=== PATIENT | male | born 1975 | race Caucasian/White ===

== ENCOUNTER → 2020-10-08 09:29 | Outpatient (CLI) | payer OTHER, SELFPAY ==
--- NOTE | 2020-10-08 09:38 | DI.RAD.S_ITS ---
PROCEDURE: XR WRIST LT 2V INDICATIONS: LT WRIST/HAND PAIN TECHNIQUE: 2 left hand plain films same day reviewed. views of the wrist were acquired. COMPARISON: Left hand plain films same day reviewed.. FINDINGS: Bones: No fractures or dislocations. No suspicious bony lesions. Scaphoid view: Not obtained but the scaphoid visualized appears normal. Soft tissues: No suspicious soft tissue calcifications. IMPRESSION: No trauma found. Source of pain is not seen. Dictated by: Cecilio Bangura M.D. on 10/08/2020 at 10:50 Approved by: Cecilio Bangura M.D. on 10/08/2020 at 10:51
--- NOTE | 2020-10-08 09:38 | DI.RAD.S_ITS ---
PROCEDURE: XR HAND LT MIN 3V INDICATIONS: LT WRIST/HAND PAIN TECHNIQUE: 3 views of the hand(s) acquired. COMPARISON: [facility], CR, XR WRIST LT 2V, 10/08/2020, 9:37. FINDINGS: Bones: No fractures or dislocations. Carpal bones are normally aligned. No suspicious bony lesions. Soft tissues: No suspicious soft tissue calcifications. IMPRESSION: No trauma found. Dictated by: Cecilio Bangura M.D. on 10/08/2020 at 10:49 Approved by: Cecilio Bangura M.D. on 10/08/2020 at 10:50
== END ==
PROVIDERS: PCP Nurse Practitioner; Referring Provider Nurse Practitioner; Visit Provider Nurse Practitioner
DX: M25.532 Pain in left wrist (principal); M67.442 Ganglion, left hand
CPT/HCPCS: 73100; 73130

== ENCOUNTER → 2023-04-05 16:45 | Outpatient (CLI) | payer OTHER, MEDICAID, SELFPAY ==
--- NOTE | 2023-04-05 | DI.US.S_ITS ---
PROCEDURE: US SCROTUM INDICATIONS: mass of left testicle TECHNIQUE: Real-time scanning was performed of the scrotum and testicles, with image documentation. Color and pulse Doppler interrogation was performed of both testicles. COMPARISON: None. FINDINGS: Right: Testicle is normal in size at 4.8 x 2.7 x 3.6 cm, and homogenous in echotexture. Epididymis is normal in overall size and morphology. No hydrocele or varicoceles. Overlying scrotal skin is normal in thickness. Left: Testicle is normal in size at 4.9 x 2.4 by 4.0 cm, and homogeneous in echotexture. Prominent cystic transformation of the left epididymis. A dominant simple cyst measures 2.3 x 1.5 x 2.3 cm. No internal debris or septations. No evidence of inguinal hernia. No hydrocele or varicoceles. Overlying scrotal skin is normal in thickness. Doppler: Color and pulse Doppler demonstrate normal and symmetric arterial flow in both testicles. IMPRESSION: 1. 2.3 cm left epididymal cyst likely accounts for left scrotal mass. 2. Normal testicular morphology. Dictated by: Sunita Royal M.D. on 04/06/2023 at 9:08 Approved by: Sunita Royal M.D. on 04/06/2023 at 9:11
== END ==
PROVIDERS: PCP Family Medicine; Referring Provider Physician Assistant; Visit Provider Physician Assistant
DX: N50.89 Other specified disorders of the male genital organs (principal); N50.3 Cyst of epididymis
CPT/HCPCS: 76870

== ENCOUNTER → 2023-04-26 15:06 | Outpatient (CLI) | payer OTHER, MEDICAID, SELFPAY ==
--- NOTE | 2023-04-26 15:08 | DI.RAD.S_ITS ---
PROCEDURE: XR SHOULDER LT MIN 2V INDICATIONS: injury in wrestling, extension TECHNIQUE: Three views of the shoulder were acquired. COMPARISON: None. FINDINGS: Bones: No acute fractures or dislocations. No suspicious bony lesions. Visualized ribs appear intact. Mild degenerative changes at the acromioclavicular joint. Soft tissues: No suspicious soft tissue calcifications. IMPRESSION: No acute osseous abnormality. If the symptoms persist, consider cross sectional imaging such as MRI or CT for further assessment. Approved by: Honorio Trujillo M.D. on 04/26/2023 at 20:35
== END ==
PROVIDERS: PCP Family Medicine; Referring Provider Physician Assistant; Visit Provider Physician Assistant
DX: S49.92XA Unspecified injury of left shoulder and upper arm, initial encounter (principal); X58.XXXA Exposure to other specified factors, initial encounter
CPT/HCPCS: 73030

== ENCOUNTER → 2023-05-08 10:26 | Outpatient (CLI) | payer OTHER, MEDICAID, SELFPAY ==
--- NOTE | 2023-05-08 10:28 | DI.MRI.S_ITS ---
PROCEDURE: MR SHOULDER LT WO CON INDICATIONS: wrestling injury in extension TECHNIQUE: Noncontrast oblique coronal T2 fast spin echo with fat saturation, oblique sagittal T1 spin echo and T2 fast spin echo with fat saturation, axial T1 spin echo and T2 fast spin echo with fat saturation through the shoulder. COMPARISON: None. FINDINGS: Image quality: Excellent. Rotator cuff: Low-grade articular and bursal surface partial thickness tear involving distal supraspinatus at its insertion on the humeral head is seen extending to musculotendinous junction. Distal infraspinatus and subscapularis tendinosis is noted. No full-thickness rotator cuff tendon rupture. Sagittal images demonstrate no significant rotator cuff muscle atrophy. Bones and bursae: No bone marrow contusions or fractures. Mild acromioclavicular joint osteoarthritic changes are seen with joint space narrowing, subchondral sclerosis and small downward osteophyte formation depressing on musculotendinous junction of supraspinatus. The acromion demonstrates conventional anatomy, without an os acromiale. No pathologic subacromial-subdeltoid or subcoracoid bursal fluid is present. Capsule and soft tissues: Subtle fraying of posterior superior labrum with T2 hyperintense signal is seen at 11 to 12 o'clock position. The long head of the biceps tendon demonstrates normal location and morphology. The rotator interval appears normal, without fibrosis. The coracohumeral ligament is normal in thickness. IMPRESSION: 1. Low-grade articular and bursal surface partial thickness tear involving distal supraspinatus at its insertion on the humeral head extending to musculotendinous junction. Distal infraspinatus and subscapularis tendinosis. No full-thickness rotator cuff tendon rupture. 2. Very mild acromioclavicular joint osteoarthritis. No marrow edema. No fracture or dislocation. 3. Suggestion of subtle posterior superior labral tear at 11 to 12 o'clock position. Dictated by: Enrique Villalba M.D. on 05/08/2023 at 12:11 Approved by: Enrique Villalba M.D. on 05/08/2023 at 12:18
== END ==
LOC: MRI 10:26
PROVIDERS: PCP Family Medicine; Referring Provider Physician Assistant; Visit Provider Physician Assistant
DX: S46.012A Strain of muscle(s) and tendon(s) of the rotator cuff of left shoulder, initial encounter (principal); X58.XXXA Exposure to other specified factors, initial encounter; Y93.72 Activity, wrestling
CPT/HCPCS: 73221

== ENCOUNTER → 2023-06-07 10:01 | Outpatient (CLI) | payer OTHER, MEDICAID, SELFPAY | LOC: PHYS 10:02 | PROVIDERS: Family Provider Family Medicine; PCP Family Medicine; Referring Provider Physician Assistant; Visit Provider Physician Assistant | DX: M75.100 Unspecified rotator cuff tear or rupture of unspecified shoulder, not specified as traumatic (principal); S43.439A Superior glenoid labrum lesion of unspecified shoulder, initial encounter | CPT/HCPCS: 95886; 95910 ==

== ENCOUNTER 2023-06-11 09:00 | Outpatient (RCR) | payer OTHER, MEDICAID, SELFPAY ==
--- NOTE | 2023-05-10 16:00 | PT.OPPOC ---
Physical, Occupational & Speech Therapy At [facility] Current Diagnoses Unspecified injury of left shoulder and upper arm, initial encounter (05/10/23) Visit Care Team Role Provider Type Gerald Hahn DO Family Provider Physician Primary Care Provider Specialty: Family Practice Address: [address] [place] [address], [address], [address] Email: [email or web address] [email or web address]-C Attending Provider Advanced Tie Hacker Referring Provider Specialty: Medical Wound Care Address: [address] [place] [address], [id number] Email: [email or web address] Plan Of Care PT-OP-T Assessment and Plan Start: 05/10/23 08:25 Freq: Status: Active Protocol: Document 05/10/23 09:46 DANITA (Rec: 05/10/23 10:36 [facility] [id number]) Physical Therapy Assessment Rehab Potential Rehabilitation Potential Good Evaluation Complexity Number of Personal Factors/Comorbidities 1-2 Number of Body Systems Impaired 3 Clinical Presentation at Evaluation Evolving Impairments Impairments Pain,Posture,Soft Tissue Mobility,Strength Goals Four Impairment numbness and tingling into left UE Snf Goal (LTG) Eliminate neurological symptoms into left UE LTG Duration 07/09/23 Three Impairment scapular weakness Impairment poor stability left scapula Short Term Goal (STG) Patient to be instructed in HEP for purposes of scapular stabilization and strengthening STG Duration 06/10/23 Visual Merchandising Director Goal (LTG) Patient to be independent and compliant with HEP and demonstrate 5/5 muscle strength all scapular muscles for improved shoulder function LTG Duration 07/09/23 Two Impairment activity tolerance Impairment Quickdash UE disability index score 34% Short Term Goal (STG) Improve Quickdash score to no greater than 24% as measure of improved activity tolerance and shoulder function STG Duration 06/10/23 LTG Duration 07/09/23 One Impairment pain left shoulder as high as 7/10, interferes with sleep Short Term Goal (STG) Decrease pain by at least 50% with all usual activities including sleep STG Duration 06/10/23 Visual Merchandising Director Goal (LTG) Decrease pain by at least 75% with all usual activities and patient will be able to sleep through the night without waking due to shoulder pain LTG Duration 07/09/23 Assessment Summary Assessment Patient presents to PT with function-limiting pain in his left shoulder following injury sustained while wrestling with his son in which his arm was pulled up and behind him. Pain got progressively worse to the point that he sought medical attention. Now taking pain medication and muscle relaxant. Patient reports can 't get comfortable to sleep at night and arm feels heavy. Also having neurological symptoms of numbness into his left hand and nerve-type pain in his left forearm. Increased pain when rotates head left, dec when rotates to right. Increased pain when tries to sit or stand with good posture, dec when slumping. Not taking Gabapentin as was recommended. MRI 05/08/23 showed: 1. Low- grade articular and bursal surface partial thickness tear involving distal supraspinatus at its insertion on the humeral head extending to musculotendinous junction. Distal infraspinatus and subscapularis tendinosis. No full-thickness rotator cuff tendon rupture. 2. Very mild acromioclavicular joint osteoarthritis. No marrow edema. No fracture or dislocation. 3. Suggestion of subtle posterior superior labral tear at 11 to 12 o'clock position. Feel he will benefit from PT to decrease his pain and promote healing, improve left shoulder ROM, strength, sleep, and functional use. POC was discussed and he was in agreement. Physical Therapy Plan Frequency and Duration Frequency of Treatment 2x/Week Duration of treatment (weeks) 8 Plan of Care Start Date 05/10/23 Plan of Care End Date 07/09/23 Therapeutic Interventions Therapeutic Interventions Home Exercise Program,Manual Therapy Next Visit Focus/Plan Next Note Type Treatment Note Next Visit Plan Assess response to kinesiotape , deep tissue mobilization. Initiate ther ex for ROM, strengthening, postural correction. Plan of Care Dates Plan of Care Start Date 05/10/23 Plan of Care End Date 07/09/23 Electronically Signed by: Mariaa Sun, PT 05/14/23 0829 If you are in agreement with this Plan of Care, please return a signed and dated copy. I have reviewed this Plan of Care and certify that the skilled therapy services above are required to meet the patient?s needs. Physician Signature Date Printed Name and Credentials Clinical Instructor Signature Printed Name and Credentials
--- NOTE | 2023-05-10 16:00 | PT.OIE ---
Current Diagnoses Unspecified injury of left shoulder and upper arm, initial encounter (05/10/23) Past Medical History (Last Updated 05/05/22 @ 13:21 by Gerald Hahn DO) Basal cell carcinoma Visit Care Team Role Provider Type Gerald Hahn DO Family Provider Physician Primary Care Provider Specialty: Family Practice Address: [address] [place] [address], [address], [place], [address] Email: [email or web address] [email or web address] Attending Provider Advanced Nurse Discharge Planner Referring Provider Specialty: Medical Wound Care Address: [address] [place] [address], [address] Email: [email or web address] Physical Therapy Initial Evaluation PT-OP-A Visit Information Start: 05/10/23 08:25 Freq: Status: Active Protocol: Document 05/10/23 09:46 SAK (Rec: 05/10/23 10:36 [facility] [id number]) Out-Patient Physical Therapy Visit Information Visit Information Visit Type Initial Evaluation Visit Start Time 09:46 Visit Stop Time 10:35 Total Visit Minutes 49 Visit Number 1 Evaluation Information Evaluation Date 05/10/23 PT-OP-B Current Condition Start: 05/10/23 08:25 Freq: Status: Active Protocol: Document 05/10/23 09:46 SAK (Rec: 05/10/23 10:36 SAK [id number]) Current Condition History of Current Condition Onset Date 1 month Current Complaints left shoulder pain History of Current Condition Thinks injured his shoulder while wrestling with his son; arm pulled back behind head with elbow bent, shoulder toward ear. Woke up next day feeling sore, has progressively gotten worse. Now having nerve pain forearm and having numbness left UE. Has rub knots in his shoulder. Worst pain is when lays down at night. Painful reaching overhead and out to side. 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, [place] Current Functional Impairments (Reported) Functional Limitations- ADL's painful Functional Limitations- Recreation/ unable Hobbies PT-OP-K Range of Motion Start: 05/10/23 08:25 Freq: Status: Active Protocol: Document 05/10/23 09:46 [facility] (Rec: 05/10/23 10:36 [facility] [id number]) Cervical Spine Range of Motion Cervical Spine Active Testing Position Sitting Flexion 45 Extension 15 Rotation Left 50 Rotation Right 65 Lateral Flexion Left 30 Lateral Flexion Right 30 ROM Limitations Pain Comments rotation left inc pain, rotation right dec pain Shoulder Goniometric Range of Motion Shoulder Left Active Shoulder ROM WFL No Flexion 165 Extension 25 Abduction 160 Horizontal Abduction 90 Horizontal Adduction 20 External Rotation at 45 degrees 65 Abduction Internal Rotation Behind Back (text) T12 right Shoulder ROM WFL Yes Elbow/Forearm Range of Motion Elbow/Forearm marie Elbow/Forearm ROM WFL Yes PT-OP-L Special Tests Start: 05/10/23 08:25 Freq: Status: Active Protocol: Document 05/10/23 09:46 [facility] (Rec: 05/10/23 10:36 [facility] [id number]) Special Tests Cervical Spine Special Tests compression Test Results sl dec pain Traction Test Results inc pain Shoulder Special Tests Empty Can Test Results neg Belly Press Test Results neg Drop Arm Rotator Cuff Test Results neg PT-OP-M Strength Start: 05/10/23 08:25 Freq: Status: Active Protocol: Document 05/10/23 09:46 [facility] (Rec: 05/10/23 10:36 [facility] [id number]) Cervical Spine Strength Cervical Spine Manual Muscle Testing Testing Position Sitting Flexion (C1-2) 4 Good Extension 4 Good Rotation Left 4- Good- Rotation Right 4- Good- Lateral Flexion Left (C3) 4- Good- Lateral Flexion Right (C3) 4 Good Scapula Strength Scapula Manual Muscle Testing Left Elevation (C4) 4- Good- Adduction 4- Good- Abduction 4- Good- Depression 4- Good- Right Elevation (C4) 5 Normal Adduction 5 Normal Abduction 5 Normal Depression 5 Normal Shoulder Strength Shoulder Manual Muscle Testing Left Flexion 4- Good- Extension 4- Good- Abduction (C5) 4- Good- Adduction 4 Good External Rotation 4- Good- Internal Rotation 4 Good Horizontal Abduction 4- Good- Horizontal Adduction 4- Good- Right Flexion 5 Normal Extension 5 Normal Abduction (C5) 5 Normal Adduction 5 Normal External Rotation 5 Normal Internal Rotation 5 Normal Horizontal Abduction 5 Normal Horizontal Adduction 5 Normal PT-OP-Q Treatments Start: 05/10/23 08:25 Freq: Status: Active Protocol: Document 05/10/23 09:46 [facility] (Rec: 05/10/23 10:36 [facility] [id number]) Manual Therapy Treatment Taping left shoulder, UT Treatment Focus inhibit UT, support RC Type of Tape Kinesio Tape Comments I strip UT: AC to base skull with paper off tension, UT on stretch 2 Y strips RC: left arm supported on bolster, 1 I strip deltoid insertion with 1 tail ant border deltoid and 1 tail post border deltoid 50- 70% tension 1 I strip RC insertion with 1 tail sup to scapular spine and 1 tail inf to scapular spine 50-75% tension Self-Care/Home Management Treatment Education Patient Education Pain Management,Posture Other Education instructed use theracane PT-OP-R Modalities Start: 05/10/23 08:25 Freq: Status: Active Protocol: Document 05/10/23 09:46 [facility] (Rec: 05/10/23 10:36 [facility] [id number]) Hot Pack/Cold Pack Treatment cold Location L shld, scap Patient Position Sitting PT-OP-T Assessment and Plan Start: 05/10/23 08:25 Freq: Status: Active Protocol: Document 05/10/23 09:46 [facility] (Rec: 05/10/23 10:36 [facility] [id number]) Physical Therapy Assessment Rehab Potential Rehabilitation Potential Good Evaluation Complexity Number of Personal Factors/Comorbidities 1-2 Number of Body Systems Impaired 3 Clinical Presentation at Evaluation Evolving Impairments Impairments Pain,Posture,Soft Tissue Mobility,Strength Goals Four Impairment numbness and tingling into left UE Alf Goal (LTG) Eliminate neurological symptoms into left UE LTG Duration 07/09/23 Three Impairment scapular weakness Impairment poor stability left scapula Short Term Goal (STG) Patient to be instructed in HEP for purposes of scapular stabilization and strengthening STG Duration 06/10/23 Sewer Digger Goal (LTG) Patient to be independent and compliant with HEP and demonstrate 5/5 muscle strength all scapular muscles for improved shoulder function LTG Duration 07/09/23 Two Impairment activity tolerance Impairment Quickdash UE disability index score 34% Short Term Goal (STG) Improve Quickdash score to no greater than 24% as measure of improved activity tolerance and shoulder function STG Duration 06/10/23 LTG Duration 07/09/23 One Impairment pain left shoulder as high as 7/10, interferes with sleep Short Term Goal (STG) Decrease pain by at least 50% with all usual activities including sleep STG Duration 06/10/23 Sewer Digger Goal (LTG) Decrease pain by at least 75% with all usual activities and patient will be able to sleep through the night without waking due to shoulder pain LTG Duration 07/09/23 Assessment Summary Assessment Patient presents to PT with function-limiting pain in his left shoulder following injury sustained while wrestling with his son in which his arm was pulled up and behind him. Pain got progressively worse to the point that he sought medical attention. Now taking pain medication and muscle relaxant. Patient reports can 't get comfortable to sleep at night and arm feels heavy. Also having neurological symptoms of numbness into his left hand and nerve-type pain in his left forearm. Increased pain when rotates head left, dec when rotates to right. Increased pain when tries to sit or stand with good posture, dec when slumping. Not taking Gabapentin as was recommended. MRI 05/08/23 showed: 1. Low- grade articular and bursal surface partial thickness tear involving distal supraspinatus at its insertion on the humeral head extending to musculotendinous junction. Distal infraspinatus and subscapularis tendinosis. No full-thickness rotator cuff tendon rupture. 2. Very mild acromioclavicular joint osteoarthritis. No marrow edema. No fracture or dislocation. 3. Suggestion of subtle posterior superior labral tear at 11 to 12 o'clock position. Feel he will benefit from PT to decrease his pain and promote healing, improve left shoulder ROM, strength, sleep, and functional use. POC was discussed and he was in agreement. Physical Therapy Plan Frequency and Duration Frequency of Treatment 2x/Week Duration of treatment (weeks) 8 Plan of Care Start Date 05/10/23 Plan of Care End Date 07/09/23 Therapeutic Interventions Therapeutic Interventions Home Exercise Program,Manual Therapy Next Visit Focus/Plan Next Note Type Treatment Note Next Visit Plan Assess response to kinesiotape , deep tissue mobilization. Initiate ther ex for ROM, strengthening, postural correction.
--- NOTE | 2023-05-15 08:42 | PT.OTN ---
Current Diagnoses Unspecified injury of left shoulder and upper arm, initial encounter (05/15/23) Physical Therapy Treatment Note PT-OP-A Visit Information Start: 05/10/23 08:25 Freq: Status: Active Protocol: Document 05/15/23 09:45 SAK (Rec: 05/15/23 10:31 [facility] [id number]) Out-Patient Physical Therapy Visit Information Visit Information Visit Type Treatment Note Visit Note Thinks the numbness came when he fell and caught himself forward on outstretched arms. That reinjured arm and caused numbness. AFter PT pain a little better. Has started doing bandwork again but with increase soreness, but now less knots. Liked kinesiotape Visit Start Time 09:45 Visit Stop Time 10:40 Total Visit Minutes 55 Visit Number 2 Evaluation Information Evaluation Date 05/10/23 PT-OP-B Current Condition Start: 05/10/23 08:25 Freq: Status: Active Protocol: Document 05/15/23 09:45 SAK (Rec: 05/15/23 10:31 [facility] [id number]) Current Condition History of Current Condition Onset Date 1 month Current Complaints left shoulder pain History of Current Condition Thinks injured his shoulder while wrestling with his son; arm pulled back behind head with elbow bent, shoulder toward ear. Woke up next day feeling sore, has progressively gotten worse. Now having nerve pain forearm and having numbness left UE. Has rub knots in his shoulder. Worst pain is when lays down at night. Painful reaching overhead and out to side. Turning head to right dec pain and numbness, turning head to left inc pain and numbness Prior Treatments and Tests MRI left shoulder: supraspinatus tear PT-OP-C Subjective Start: 05/10/23 08:25 Freq: Status: Active Protocol: Document 05/15/23 09:45 SAK (Rec: 05/16/23 08:41 SAK [id number]) OP-PT Subjective Patient Comments Patient Comments Reports dec in intensity of pain, some improvement in sleep. Feels work on trigger points helpful. PT-OP-K Range of Motion Start: 05/10/23 08:25 Freq: Status: Active Protocol: Document 05/10/23 09:46 SAK (Rec: 05/10/23 10:36 SAK [id number]) Cervical Spine Range of Motion Cervical Spine Active Testing Position Sitting Flexion 45 Extension 15 Rotation Left 50 Rotation Right 65 Lateral Flexion Left 30 Lateral Flexion Right 30 ROM Limitations Pain Comments rotation left inc pain, rotation right dec pain Shoulder Goniometric Range of Motion Shoulder Left Active Shoulder ROM WFL No Flexion 165 Extension 25 Abduction 160 Horizontal Abduction 90 Horizontal Adduction 20 External Rotation at 45 degrees 65 Abduction Internal Rotation Behind Back (text) T12 right Shoulder ROM WFL Yes Elbow/Forearm Range of Motion Elbow/Forearm marie Elbow/Forearm ROM WFL Yes PT-OP-L Special Tests Start: 05/10/23 08:25 Freq: Status: Active Protocol: Document 05/10/23 09:46 [facility] (Rec: 05/10/23 10:36 [facility] [id number]) Special Tests Cervical Spine Special Tests compression Test Results sl dec pain Traction Test Results inc pain Shoulder Special Tests Empty Can Test Results neg Belly Press Test Results neg Drop Arm Rotator Cuff Test Results neg PT-OP-M Strength Start: 05/10/23 08:25 Freq: Status: Active Protocol: Document 05/10/23 09:46 [facility] (Rec: 05/10/23 10:36 [facility] [id number]) Cervical Spine Strength Cervical Spine Manual Muscle Testing Testing Position Sitting Flexion (C1-2) 4 Good Extension 4 Good Rotation Left 4- Good- Rotation Right 4- Good- Lateral Flexion Left (C3) 4- Good- Lateral Flexion Right (C3) 4 Good Scapula Strength Scapula Manual Muscle Testing Left Elevation (C4) 4- Good- Adduction 4- Good- Abduction 4- Good- Depression 4- Good- Right Elevation (C4) 5 Normal Adduction 5 Normal Abduction 5 Normal Depression 5 Normal Shoulder Strength Shoulder Manual Muscle Testing Left Flexion 4- Good- Extension 4- Good- Abduction (C5) 4- Good- Adduction 4 Good External Rotation 4- Good- Internal Rotation 4 Good Horizontal Abduction 4- Good- Horizontal Adduction 4- Good- Right Flexion 5 Normal Extension 5 Normal Abduction (C5) 5 Normal Adduction 5 Normal External Rotation 5 Normal Internal Rotation 5 Normal Horizontal Abduction 5 Normal Horizontal Adduction 5 Normal PT-OP-Q Treatments Start: 05/10/23 08:25 Freq: Status: Active Protocol: Document 05/15/23 09:45 SAK (Rec: 05/15/23 10:31 [facility] [id number]) Cardio Equipment Upper Body Ergometer (UBE) Duration (Minutes) 6 RPM 60 Seat Position 11 Height 2.5 Other fwd/bck Gym Equipment Cable Column (Body Solid) lat pull Resistance 40 Reps/Time 10x scap shrug Details lat machine Resistance 40 Reps/Time 10x Therapeutic Exercises Sidelying Exercises open book Reps/Minutes 5x Sitting Exercises trunk rotation Reps/Minutes 2x Comments cues for deep breath serratus pinch Sitting Exercise Name UE's 90 degrees Reps/Minutes 5x shoulder shrugs Reps/Minutes 5x cat/cow Reps/Minutes 5x Standing Exercises scaption Equipment Used L1 TB Reps/Minutes 10x5 Comments cues for palm forward, pain- free ROM shoulder ER Equipment Used L1 TB Reps/Minutes 10x5 Comments cues for elbows at side post capsule stretch Reps/Minutes 2x angels Equipment Used wall Reps/Minutes 5x wall Standing Exercise Name 90/90 shld ER Reps/Minutes 5x Comments back to wall Manual Therapy Treatment Soft Tissue Mobilization periscap Mobilization Type Myofascial Release,Sustained Pressure Intensity/Depth Deep Body Position Sidelying Taping left shoulder, UT Treatment Focus inhibit UT, support RC Type of Tape Kinesio Tape Comments I strip UT: AC to base skull with paper off tension, UT on stretch 2 Y strips RC: left arm supported on bolster, 1 I strip deltoid insertion with 1 tail ant border deltoid and 1 tail post border deltoid 50- 70% tension 1 I strip RC insertion with 1 tail sup to scapular spine and 1 tail inf to scapular spine 50-75% tension Self-Care/Home Management Treatment Education Patient Education Home Exercise Program,Pain Management,Posture PT-OP-R Modalities Start: 05/10/23 08:25 Freq: Status: Active Protocol: Document 05/15/23 09:45 [facility] (Rec: 05/16/23 08:41 [facility] [id number]) Hot Pack/Cold Pack Treatment Hot Pack Location left should, scap (small), left lat thorax (large Patient Position Sitting PT-OP-T Assessment and Plan Start: 05/10/23 08:25 Freq: Status: Active Protocol: Document 05/15/23 09:45 [facility] (Rec: 05/15/23 10:31 [facility] [id number]) Physical Therapy Assessment Impairments Impairments Pain,Posture,Soft Tissue Mobility,Strength Goals Four Impairment numbness and tingling into left UE Truck Trailer Final Inspector Goal (LTG) Eliminate neurological symptoms into left UE LTG Duration 07/09/23 Three Impairment scapular weakness Impairment poor stability left scapula Short Term Goal (STG) Patient to be instructed in HEP for purposes of scapular stabilization and strengthening STG Duration 06/10/23 Truck Trailer Final Inspector Goal (LTG) Patient to be independent and compliant with HEP and demonstrate 5/5 muscle strength all scapular muscles for improved shoulder function LTG Duration 07/09/23 Two Impairment activity tolerance Impairment Quickdash UE disability index score 34% Short Term Goal (STG) Improve Quickdash score to no greater than 24% as measure of improved activity tolerance and shoulder function STG Duration 06/10/23 LTG Duration 07/09/23 One Impairment pain left shoulder as high as 7/10, interferes with sleep Short Term Goal (STG) Decrease pain by at least 50% with all usual activities including sleep STG Duration 06/10/23 Truck Trailer Final Inspector Goal (LTG) Decrease pain by at least 75% with all usual activities and patient will be able to sleep through the night without waking due to shoulder pain LTG Duration 07/09/23 Progress Towards Goals Progress Towards Goals Progressing Toward Goals Assessment Summary Assessment Good progress with dec pain and improved activity tolerance. Still numbness in hand. Benefits from kinesiotape. Diminished trigger points periscapular but still present Physical Therapy Plan Frequency and Duration Frequency of Treatment 2x/Week Duration of treatment (weeks) 8 Plan of Care Start Date 05/10/23 Plan of Care End Date 07/09/23 Therapeutic Interventions Therapeutic Interventions Home Exercise Program,Manual Therapy
--- NOTE | 2023-05-22 12:13 | PT.OTN ---
Current Diagnoses Unspecified injury of left shoulder and upper arm, initial encounter (05/22/23) Physical Therapy Treatment Note PT-OP-A Visit Information Start: 05/10/23 08:25 Freq: Status: Active Protocol: Document 05/22/23 11:23 AB (Rec: 05/22/23 12:10 AB [id number]) Out-Patient Physical Therapy Visit Information Visit Information Visit Type Treatment Note Visit Start Time 10:29 Visit Stop Time 11:14 Total Visit Minutes 45 Visit Number 3 Number of [employer] Visits 1 PT-OP-B Current Condition Start: 05/10/23 08:25 Freq: Status: Active Protocol: Document 05/15/23 09:45 SAK (Rec: 05/15/23 10:31 SAK [id number]) Current Condition History of Current Condition Onset Date 1 month Current Complaints left shoulder pain History of Current Condition Thinks injured his shoulder while wrestling with his son; arm pulled back behind head with elbow bent, shoulder toward ear. Woke up next day feeling sore, has progressively gotten worse. Now having nerve pain forearm and having numbness left UE. Has rub knots in his shoulder. Worst pain is when lays down at night. Painful reaching overhead and out to side. Turning head to right dec pain and numbness, turning head to left inc pain and numbness Prior Treatments and Tests MRI left shoulder: supraspinatus tear PT-OP-C Subjective Start: 05/10/23 08:25 Freq: Status: Active Protocol: Document 05/22/23 11:23 AB (Rec: 05/22/23 12:10 AB [id number]) OP-PT Subjective Patient Comments Patient Comments Patient reports numbness left index finger persists, only at tip most of the time, but further down the finger post exercise. Patient reports he had a hard work out shoveling and working to clear a downspout at his home yesterday, and woke up today with no shoulder pain. Patient comments he did not take his pain meds today as he wanted to see how he felt in therapy without having taken pain medication. Patient declined taping this session, commenting skin was raw when he took off the tape, and comments his skin needs a break. PT-OP-K Range of Motion Start: 05/10/23 08:25 Freq: Status: Active Protocol: Document 05/10/23 09:46 SAK (Rec: 05/10/23 10:36 [facility] [id number]) Cervical Spine Range of Motion Cervical Spine Active Testing Position Sitting Flexion 45 Extension 15 Rotation Left 50 Rotation Right 65 Lateral Flexion Left 30 Lateral Flexion Right 30 ROM Limitations Pain Comments rotation left inc pain, rotation right dec pain Shoulder Goniometric Range of Motion Shoulder Left Active Shoulder ROM WFL No Flexion 165 Extension 25 Abduction 160 Horizontal Abduction 90 Horizontal Adduction 20 External Rotation at 45 degrees 65 Abduction Internal Rotation Behind Back (text) T12 right Shoulder ROM WFL Yes Elbow/Forearm Range of Motion Elbow/Forearm marie Elbow/Forearm ROM WFL Yes PT-OP-L Special Tests Start: 05/10/23 08:25 Freq: Status: Active Protocol: Document 05/10/23 09:46 [facility] (Rec: 05/10/23 10:36 [facility] [id number]) Special Tests Cervical Spine Special Tests compression Test Results sl dec pain Traction Test Results inc pain Shoulder Special Tests Empty Can Test Results neg Belly Press Test Results neg Drop Arm Rotator Cuff Test Results neg PT-OP-M Strength Start: 05/10/23 08:25 Freq: Status: Active Protocol: Document 05/10/23 09:46 [facility] (Rec: 05/10/23 10:36 [facility] [id number]) Cervical Spine Strength Cervical Spine Manual Muscle Testing Testing Position Sitting Flexion (C1-2) 4 Good Extension 4 Good Rotation Left 4- Good- Rotation Right 4- Good- Lateral Flexion Left (C3) 4- Good- Lateral Flexion Right (C3) 4 Good Scapula Strength Scapula Manual Muscle Testing Left Elevation (C4) 4- Good- Adduction 4- Good- Abduction 4- Good- Depression 4- Good- Right Elevation (C4) 5 Normal Adduction 5 Normal Abduction 5 Normal Depression 5 Normal Shoulder Strength Shoulder Manual Muscle Testing Left Flexion 4- Good- Extension 4- Good- Abduction (C5) 4- Good- Adduction 4 Good External Rotation 4- Good- Internal Rotation 4 Good Horizontal Abduction 4- Good- Horizontal Adduction 4- Good- Right Flexion 5 Normal Extension 5 Normal Abduction (C5) 5 Normal Adduction 5 Normal External Rotation 5 Normal Internal Rotation 5 Normal Horizontal Abduction 5 Normal Horizontal Adduction 5 Normal PT-OP-Q Treatments Start: 05/10/23 08:25 Freq: Status: Active Protocol: Document 05/22/23 11:23 AB (Rec: 05/22/23 12:10 AB [id number]) Therapeutic Exercises Supine Exercises chest radio operator ground on foam roller Side bilateral Reps/Minutes 3 minutes Comments Verbal cues for UE positioning and for breathing from diaphragm Sidelying Exercises open book Side bilateral Reps/Minutes 5x Comments Verbal cues for breathing Sitting Exercises serratus pinch Side bilateral Comments Verbal cues for avoiding UT activation left Standing Exercises high row Standing Exercise Name high row Side bilateral Resistance blue band Reps/Minutes 2X10 Comments Verbal and tactile cues for avoiding UT activation and extending elbows scaption Equipment Used L1 TB Reps/Minutes X10 Comments verbal cues for thumb up and to lower slowly shoulder ER Side bilateral Equipment Used L1 TB Reps/Minutes 2X10 Comments cues for elbows at side post capsule stretch Reps/Minutes 2x wall Standing Exercise Name 90/90 shld ER Reps/Minutes 2X10 Comments back to wall left side, repeated verbal cues to perform in pain free range Manual Therapy Treatment Soft Tissue Mobilization Cervical spine Body Location left UT, levator scap, scalene laterally at clavicle Mobilization Type Rolling Intensity/Depth S to M Body Position Sitting Comments Seated with pillows under UE's pec Body Location left pec Mobilization Type Rolling,Other Intensity/Depth Deep Body Position Hooklying periscap Body Location posterior cuff, terres major/ minor, Mobilization Type Rolling,Sustained Pressure Intensity/Depth Moderate Body Position Sidelying Comments Monitored for pain Joint Mobilizations scapular mobilization Joint left scapula Grade III Body Position Sidelying Comments into depression and adduction monitored for pain PT-OP-R Modalities Start: 05/10/23 08:25 Freq: Status: Active Protocol: Document 05/15/23 09:45 SAK (Rec: 05/16/23 08:41 [facility] [id number]) Hot Pack/Cold Pack Treatment Hot Pack Location left should, scap (small), left lat thorax (large Patient Position Sitting PT-OP-T Assessment and Plan Start: 05/10/23 08:25 Freq: Status: Active Protocol: Document 05/22/23 11:23 AB (Rec: 05/22/23 12:10 AB [id number]) Physical Therapy Assessment Goals Four Impairment numbness and tingling into left UE Primary Care Provider Goal (LTG) Eliminate neurological symptoms into left UE LTG Duration 07/09/23 Three Impairment scapular weakness Impairment poor stability left scapula Short Term Goal (STG) Patient to be instructed in HEP for purposes of scapular stabilization and strengthening STG Duration 06/10/23 [facility] Goal (LTG) Patient to be independent and compliant with HEP and demonstrate 5/5 muscle strength all scapular muscles for improved shoulder function LTG Duration 07/09/23 Two Impairment activity tolerance Impairment Quickdash UE disability index score 34% Short Term Goal (STG) Improve Quickdash score to no greater than 24% as measure of improved activity tolerance and shoulder function STG Duration 06/10/23 LTG Duration 07/09/23 One Impairment pain left shoulder as high as 7/10, interferes with sleep Short Term Goal (STG) Decrease pain by at least 50% with all usual activities including sleep STG Duration 06/10/23 Primary Care Provider Goal (LTG) Decrease pain by at least 75% with all usual activities and patient will be able to sleep through the night without waking due to shoulder pain LTG Duration 07/09/23 Assessment Summary Assessment Patient into session with reports of left shoulder pain when performing increased activites/working in yard. UT activation during exercises in clinic today continued to be a problem. Patient will benefit from progression of stretching and strengthening exercises and manual therapy for return to previous level of function. Medbridge code [id number] Physical Therapy Plan Frequency and Duration Frequency of Treatment 2x/Week Duration of treatment (weeks) 8 Plan of Care Start Date 05/10/23 Plan of Care End Date 07/09/23 Next Visit Focus/Plan Next Note Type Treatment Note Next Visit Plan possibly progress scapular strengthening, add a pec stretch, reassess tolerance to shoulder ER back to wall 90/ 90 position
--- NOTE | 2023-05-24 16:07 | PT.OTN ---
Current Diagnoses Unspecified injury of left shoulder and upper arm, initial encounter (05/24/23) Physical Therapy Treatment Note PT-OP-A Visit Information Start: 05/10/23 08:25 Freq: Status: Active Protocol: Document 05/24/23 10:29 AB (Rec: 05/24/23 12:08 AB [id number]) Out-Patient Physical Therapy Visit Information Visit Information Visit Start Time 10:33 Visit Stop Time 11:16 Visit Number 4 Number of COLLAR RUNNER Visits 2 PT-OP-B Current Condition Start: 05/10/23 08:25 Freq: Status: Active Protocol: Document 05/15/23 09:45 SAK (Rec: 05/15/23 10:31 SAK [id number]) Current Condition History of Current Condition Onset Date 1 month Current Complaints left shoulder pain History of Current Condition Thinks injured his shoulder while wrestling with his son; arm pulled back behind head with elbow bent, shoulder toward ear. Woke up next day feeling sore, has progressively gotten worse. Now having nerve pain forearm and having numbness left UE. Has rub knots in his shoulder. Worst pain is when lays down at night. Painful reaching overhead and out to side. Turning head to right dec pain and numbness, turning head to left inc pain and numbness Prior Treatments and Tests MRI left shoulder: supraspinatus tear PT-OP-C Subjective Start: 05/10/23 08:25 Freq: Status: Active Protocol: Document 05/24/23 10:29 AB (Rec: 05/24/23 12:08 AB [id number]) OP-PT Subjective Patient Comments Patient Comments Patient reports the shoulder is better, comments the more he uses it the less stiff he feels. Patient reports having less pain in the morning. Patient reports the tingling seems less in the thumb, but still persists. Patient also comments the nerve pain is less. PT-OP-K Range of Motion Start: 05/10/23 08:25 Freq: Status: Active Protocol: Document 05/10/23 09:46 SAK (Rec: 05/10/23 10:36 SAK [id number]) Cervical Spine Range of Motion Cervical Spine Active Testing Position Sitting Flexion 45 Extension 15 Rotation Left 50 Rotation Right 65 Lateral Flexion Left 30 Lateral Flexion Right 30 ROM Limitations Pain Comments rotation left inc pain, rotation right dec pain Shoulder Goniometric Range of Motion Shoulder Left Active Shoulder ROM WFL No Flexion 165 Extension 25 Abduction 160 Horizontal Abduction 90 Horizontal Adduction 20 External Rotation at 45 degrees 65 Abduction Internal Rotation Behind Back (text) T12 right Shoulder ROM WFL Yes Elbow/Forearm Range of Motion Elbow/Forearm marie Elbow/Forearm ROM WFL Yes PT-OP-L Special Tests Start: 05/10/23 08:25 Freq: Status: Active Protocol: Document 05/10/23 09:46 SAK (Rec: 05/10/23 10:36 [facility] [id number]) Special Tests Cervical Spine Special Tests compression Test Results sl dec pain Traction Test Results inc pain Shoulder Special Tests Empty Can Test Results neg Belly Press Test Results neg Drop Arm Rotator Cuff Test Results neg PT-OP-M Strength Start: 05/10/23 08:25 Freq: Status: Active Protocol: Document 05/10/23 09:46 [facility] (Rec: 05/10/23 10:36 [facility] [id number]) Cervical Spine Strength Cervical Spine Manual Muscle Testing Testing Position Sitting Flexion (C1-2) 4 Good Extension 4 Good Rotation Left 4- Good- Rotation Right 4- Good- Lateral Flexion Left (C3) 4- Good- Lateral Flexion Right (C3) 4 Good Scapula Strength Scapula Manual Muscle Testing Left Elevation (C4) 4- Good- Adduction 4- Good- Abduction 4- Good- Depression 4- Good- Right Elevation (C4) 5 Normal Adduction 5 Normal Abduction 5 Normal Depression 5 Normal Shoulder Strength Shoulder Manual Muscle Testing Left Flexion 4- Good- Extension 4- Good- Abduction (C5) 4- Good- Adduction 4 Good External Rotation 4- Good- Internal Rotation 4 Good Horizontal Abduction 4- Good- Horizontal Adduction 4- Good- Right Flexion 5 Normal Extension 5 Normal Abduction (C5) 5 Normal Adduction 5 Normal External Rotation 5 Normal Internal Rotation 5 Normal Horizontal Abduction 5 Normal Horizontal Adduction 5 Normal PT-OP-Q Treatments Start: 05/10/23 08:25 Freq: Status: Active Protocol: Document 05/24/23 10:29 AB (Rec: 05/24/23 12:08 AB [id number]) Therapeutic Exercises Prone Exercises prone T over ball Side bilateral Resistance 3 lb each UE Reps/Minutes X10 Comments Verbal and visual cues prone Y over ball Side bilateral Resistance 0 Comments verbal cues repeated Sidelying Exercises open book Side bilateral Reps/Minutes X10 Comments Verbal cues for breathing, and LE position Sitting Exercises serratus pinch Side bilateral Reps/Minutes X10 Comments visual cues Standing Exercises wall push up plus Side bilateral Reps/Minutes 10 Comments Verbal, visual and tactile cues pec stretch on door Standing Exercise Name pec on door single arm Side bilateral Reps/Minutes 3 one minute Comments verbal and visual cues post capsule stretch Reps/Minutes 2x Manual Therapy Treatment Soft Tissue Mobilization Cervical spine Body Location left UT, levator scap, scalene laterally at clavicle Mobilization Type Sustained Pressure Intensity/Depth Deep Body Position Sitting Comments Seated with pillows under UE's pec Body Location left pec Mobilization Type Rolling,Other Intensity/Depth Deep Body Position Hooklying periscap Body Location posterior cuff, terres major/ minor, Mobilization Type Rolling,Sustained Pressure Intensity/Depth Moderate Body Position Sidelying Comments Monitored for pain Joint Mobilizations scapular mobilization Joint left scapula Grade III Body Position Sidelying Comments into depression and adduction monitored for pain Self-Care/Home Management Treatment Education Patient Education Home Exercise Program,Posture Other Education Patient ed rationale of pec stretch and scapular strengthening to improve shoulder alignment and function. PT-OP-R Modalities Start: 05/10/23 08:25 Freq: Status: Active Protocol: Document 05/15/23 09:45 SAK (Rec: 05/16/23 08:41 SAK [id number]) Hot Pack/Cold Pack Treatment Hot Pack Location left should, scap (small), left lat thorax (large Patient Position Sitting PT-OP-T Assessment and Plan Start: 05/10/23 08:25 Freq: Status: Active Protocol: Document 05/24/23 10:29 AB (Rec: 05/24/23 12:08 AB [id number]) Physical Therapy Assessment Goals Four Impairment numbness and tingling into left UE Sponge Clipper Goal (LTG) Eliminate neurological symptoms into left UE LTG Duration 07/09/23 Three Impairment scapular weakness Impairment poor stability left scapula Short Term Goal (STG) progressing STG Duration 06/10/23 Sponge Clipper Goal (LTG) Patient to be independent and compliant with HEP and demonstrate 5/5 muscle strength all scapular muscles for improved shoulder function LTG Duration 07/09/23 Two Impairment activity tolerance Impairment Quickdash UE disability index score 34% Short Term Goal (STG) Improve Quickdash score to no greater than 24% as measure of improved activity tolerance and shoulder function STG Duration 06/10/23 LTG Duration 07/09/23 One Impairment pain left shoulder as high as 7/10, interferes with sleep Short Term Goal (STG) Decrease pain by at least 50% with all usual activities including sleep STG Duration 06/10/23 Mcfp Goal (LTG) Decrease pain by at least 75% with all usual activities and patient will be able to sleep through the night without waking due to shoulder pain LTG Duration 07/09/23 Assessment Summary Assessment Patient demonstrated improved tolerance to AROM ER with back to wall at 90 deg abduction, reported no pinching pain and commented he would like to try this exercise with a water bottle. Radicular symptoms persists, but per patient may be less as he has to think about if he can really feel it . Physical Therapy Plan Frequency and Duration Frequency of Treatment 2x/Week Duration of treatment (weeks) 8 Plan of Care Start Date 05/10/23 Plan of Care End Date 07/09/23 Next Visit Focus/Plan Next Note Type Treatment Note Next Visit Plan Possibly AROM IR with focus on self tactile cues to avoid anterior translation of humeral head, rhythmic oscillation/statue of liberty with yellow therabar as tolerated
--- NOTE | 2023-05-29 09:00 | PT.OTN ---
Current Diagnoses Unspecified injury of left shoulder and upper arm, initial encounter (05/29/23) Physical Therapy Treatment Note PT-OP-A Visit Information Start: 05/10/23 08:25 Freq: Status: Active Protocol: Document 05/29/23 08:07 SAK (Rec: 05/29/23 09:00 [facility] [id number]) Out-Patient Physical Therapy Visit Information Visit Information Visit Type Treatment Note Visit Start Time 08:14 Visit Stop Time 08:58 Visit Number 5 Number of GEEK SQUAD MANAGER Visits 0 PT-OP-B Current Condition Start: 05/10/23 08:25 Freq: Status: Active Protocol: Document 05/29/23 08:07 SAK (Rec: 05/29/23 09:00 SAK [id number]) Current Condition History of Current Condition Onset Date 1 month Current Complaints left shoulder pain History of Current Condition Thinks injured his shoulder while wrestling with his son; arm pulled back behind head with elbow bent, shoulder toward ear. Woke up next day feeling sore, has progressively gotten worse. Now having nerve pain forearm and having numbness left UE. Has rub knots in his shoulder. Worst pain is when lays down at night. Painful reaching overhead and out to side. Turning head to right dec pain and numbness, turning head to left inc pain and numbness Prior Treatments and Tests MRI left shoulder: supraspinatus tear PT-OP-C Subjective Start: 05/10/23 08:25 Freq: Status: Active Protocol: Document 05/29/23 08:07 SAK (Rec: 05/29/23 09:00 SAK [id number]) OP-PT Subjective Patient Comments Patient Comments Reports sore today, hasn't been taking it easy; states muscle sore not painful sore. Already took a walk 1 mile this am. Requests kinesiotape again as skin has recovered. PT-OP-K Range of Motion Start: 05/10/23 08:25 Freq: Status: Active Protocol: Document 05/10/23 09:46 SAK (Rec: 05/10/23 10:36 SAK [id number]) Cervical Spine Range of Motion Cervical Spine Active Testing Position Sitting Flexion 45 Extension 15 Rotation Left 50 Rotation Right 65 Lateral Flexion Left 30 Lateral Flexion Right 30 ROM Limitations Pain Comments rotation left inc pain, rotation right dec pain Shoulder Goniometric Range of Motion Shoulder Left Active Shoulder ROM WFL No Flexion 165 Extension 25 Abduction 160 Horizontal Abduction 90 Horizontal Adduction 20 External Rotation at 45 degrees 65 Abduction Internal Rotation Behind Back (text) T12 right Shoulder ROM WFL Yes Elbow/Forearm Range of Motion Elbow/Forearm marie Elbow/Forearm ROM WFL Yes PT-OP-L Special Tests Start: 05/10/23 08:25 Freq: Status: Active Protocol: Document 05/10/23 09:46 [facility] (Rec: 05/10/23 10:36 [facility] [id number]) Special Tests Cervical Spine Special Tests compression Test Results sl dec pain Traction Test Results inc pain Shoulder Special Tests Empty Can Test Results neg Belly Press Test Results neg Drop Arm Rotator Cuff Test Results neg PT-OP-M Strength Start: 05/10/23 08:25 Freq: Status: Active Protocol: Document 05/10/23 09:46 [facility] (Rec: 05/10/23 10:36 [facility] [id number]) Cervical Spine Strength Cervical Spine Manual Muscle Testing Testing Position Sitting Flexion (C1-2) 4 Good Extension 4 Good Rotation Left 4- Good- Rotation Right 4- Good- Lateral Flexion Left (C3) 4- Good- Lateral Flexion Right (C3) 4 Good Scapula Strength Scapula Manual Muscle Testing Left Elevation (C4) 4- Good- Adduction 4- Good- Abduction 4- Good- Depression 4- Good- Right Elevation (C4) 5 Normal Adduction 5 Normal Abduction 5 Normal Depression 5 Normal Shoulder Strength Shoulder Manual Muscle Testing Left Flexion 4- Good- Extension 4- Good- Abduction (C5) 4- Good- Adduction 4 Good External Rotation 4- Good- Internal Rotation 4 Good Horizontal Abduction 4- Good- Horizontal Adduction 4- Good- Right Flexion 5 Normal Extension 5 Normal Abduction (C5) 5 Normal Adduction 5 Normal External Rotation 5 Normal Internal Rotation 5 Normal Horizontal Abduction 5 Normal Horizontal Adduction 5 Normal PT-OP-Q Treatments Start: 05/10/23 08:25 Freq: Status: Active Protocol: Document 05/29/23 08:07 [facility] (Rec: 05/29/23 09:00 [facility] [id number]) Gym Equipment Cable Column (Body Solid) scap shrug Details lat machine Resistance 40 Reps/Time 10x2 Therapeutic Exercises Supine Exercises serratus punch Resistance 3# weight Reps/Minutes 10x2 X Supine Exercise Name diagonal Resistance L2 TB Reps/Minutes 10x hor ab Resistance L2 TB Reps/Minutes 10x chest mobile home servicer on foam roller Side bilateral Reps/Minutes 3 minutes Comments Verbal cues for UE positioning and for breathing from diaphragm Prone Exercises prone T over ball Side bilateral Resistance 3 lb each UE Reps/Minutes 10x2 Comments Verbal and visual cues prone Y over ball Side bilateral Resistance 3 lb ea Reps/Minutes 10x Comments verbal cues repeated Standing Exercises ER 90/90 Resistance L1 TB pec stretch on door Standing Exercise Name pec on door single arm Side bilateral Reps/Minutes 3 one minute Comments verbal and visual cues wall Standing Exercise Name 90/90 shld ER Reps/Minutes 2X10 Comments back to wall left side, repeated verbal cues to perform in pain free range Manual Therapy Treatment Taping left shoulder, UT Treatment Focus inhibit UT, support RC Type of Tape Kinesio Tape Comments I strip UT: AC to base skull with paper off tension, UT on stretch 2 Y strips RC: left arm supported on bolster, 1 I strip deltoid insertion with 1 tail ant border deltoid and 1 tail post border deltoid 50- 70% tension 1 I strip RC insertion with 1 tail sup to scapular spine and 1 tail inf to scapular spine 50-75% tension PT-OP-R Modalities Start: 05/10/23 08:25 Freq: Status: Active Protocol: Document 05/15/23 09:45 [facility] (Rec: 05/16/23 08:41 [facility] [id number]) Hot Pack/Cold Pack Treatment Hot Pack Location left should, scap (small), left lat thorax (large Patient Position Sitting PT-OP-T Assessment and Plan Start: 05/10/23 08:25 Freq: Status: Active Protocol: Document 05/29/23 08:07 [facility] (Rec: 05/29/23 09:00 [facility] [id number]) Physical Therapy Assessment Goals Four Impairment numbness and tingling into left UE Fdc Goal (LTG) Eliminate neurological symptoms into left UE LTG Duration 07/09/23 Three Impairment scapular weakness Impairment poor stability left scapula Short Term Goal (STG) progressing STG Duration 06/10/23 General Education Instructor Goal (LTG) Patient to be independent and compliant with HEP and demonstrate 5/5 muscle strength all scapular muscles for improved shoulder function LTG Duration 07/09/23 Two Impairment activity tolerance Impairment Quickdash UE disability index score 34% Short Term Goal (STG) Improve Quickdash score to no greater than 24% as measure of improved activity tolerance and shoulder function STG Duration 06/10/23 LTG Duration 07/09/23 One Impairment pain left shoulder as high as 7/10, interferes with sleep Short Term Goal (STG) Decrease pain by at least 50% with all usual activities including sleep STG Duration 06/10/23 Fdc Goal (LTG) Decrease pain by at least 75% with all usual activities and patient will be able to sleep through the night without waking due to shoulder pain LTG Duration 07/09/23 Assessment Summary Assessment Patient cont to report improved function and decreased pain in left shoulder, no pinching impingement pain today. Radicular symptoms less often Physical Therapy Plan Frequency and Duration Frequency of Treatment 2x/Week Duration of treatment (weeks) 8 Plan of Care Start Date 05/10/23 Plan of Care End Date 07/09/23 Next Visit Focus/Plan Next Note Type Treatment Note Next Visit Plan Rhythmic oscillation/statue of liberty ex, continue progression of functional strengthening, cues to prevent compensatory movements.
--- NOTE | 2023-05-31 11:39 | PT.OTN ---
Current Diagnoses Unspecified injury of left shoulder and upper arm, initial encounter (05/31/23) Physical Therapy Treatment Note PT-OP-A Visit Information Start: 05/10/23 08:25 Freq: Status: Active Protocol: Document 05/31/23 08:12 AB (Rec: 05/31/23 11:38 AB [id number]) Out-Patient Physical Therapy Visit Information Visit Information Visit Type Treatment Note Visit Note Access code [id number] Visit Start Time 10:28 Visit Stop Time 11:18 Visit Number 6 Number of CNC MAINTENANCE TECHNICIAN Visits 1 PT-OP-B Current Condition Start: 05/10/23 08:25 Freq: Status: Active Protocol: Document 05/29/23 08:07 SAK (Rec: 05/29/23 09:00 SAK [id number]) Current Condition History of Current Condition Onset Date 1 month Current Complaints left shoulder pain History of Current Condition Thinks injured his shoulder while wrestling with his son; arm pulled back behind head with elbow bent, shoulder toward ear. Woke up next day feeling sore, has progressively gotten worse. Now having nerve pain forearm and having numbness left UE. Has rub knots in his shoulder. Worst pain is when lays down at night. Painful reaching overhead and out to side. Turning head to right dec pain and numbness, turning head to left inc pain and numbness Prior Treatments and Tests MRI left shoulder: supraspinatus tear PT-OP-C Subjective Start: 05/10/23 08:25 Freq: Status: Active Protocol: Document 05/31/23 08:12 AB (Rec: 05/31/23 11:38 AB [id number]) OP-PT Subjective Patient Comments Patient Comments Patient reports he is still having soreness from his previous session, comments it is the good, muscle sore. Patient reports the numbness is the same. PT-OP-K Range of Motion Start: 05/10/23 08:25 Freq: Status: Active Protocol: Document 05/10/23 09:46 SAK (Rec: 05/10/23 10:36 SAK [id number]) Cervical Spine Range of Motion Cervical Spine Active Testing Position Sitting Flexion 45 Extension 15 Rotation Left 50 Rotation Right 65 Lateral Flexion Left 30 Lateral Flexion Right 30 ROM Limitations Pain Comments rotation left inc pain, rotation right dec pain Shoulder Goniometric Range of Motion Shoulder Left Active Shoulder ROM WFL No Flexion 165 Extension 25 Abduction 160 Horizontal Abduction 90 Horizontal Adduction 20 External Rotation at 45 degrees 65 Abduction Internal Rotation Behind Back (text) T12 right Shoulder ROM WFL Yes Elbow/Forearm Range of Motion Elbow/Forearm marie Elbow/Forearm ROM WFL Yes PT-OP-L Special Tests Start: 05/10/23 08:25 Freq: Status: Active Protocol: Document 05/10/23 09:46 [facility] (Rec: 05/10/23 10:36 [facility] [id number]) Special Tests Cervical Spine Special Tests compression Test Results sl dec pain Traction Test Results inc pain Shoulder Special Tests Empty Can Test Results neg Belly Press Test Results neg Drop Arm Rotator Cuff Test Results neg PT-OP-M Strength Start: 05/10/23 08:25 Freq: Status: Active Protocol: Document 05/10/23 09:46 [facility] (Rec: 05/10/23 10:36 [facility] [id number]) Cervical Spine Strength Cervical Spine Manual Muscle Testing Testing Position Sitting Flexion (C1-2) 4 Good Extension 4 Good Rotation Left 4- Good- Rotation Right 4- Good- Lateral Flexion Left (C3) 4- Good- Lateral Flexion Right (C3) 4 Good Scapula Strength Scapula Manual Muscle Testing Left Elevation (C4) 4- Good- Adduction 4- Good- Abduction 4- Good- Depression 4- Good- Right Elevation (C4) 5 Normal Adduction 5 Normal Abduction 5 Normal Depression 5 Normal Shoulder Strength Shoulder Manual Muscle Testing Left Flexion 4- Good- Extension 4- Good- Abduction (C5) 4- Good- Adduction 4 Good External Rotation 4- Good- Internal Rotation 4 Good Horizontal Abduction 4- Good- Horizontal Adduction 4- Good- Right Flexion 5 Normal Extension 5 Normal Abduction (C5) 5 Normal Adduction 5 Normal External Rotation 5 Normal Internal Rotation 5 Normal Horizontal Abduction 5 Normal Horizontal Adduction 5 Normal PT-OP-Q Treatments Start: 05/10/23 08:25 Freq: Status: Active Protocol: Document 05/31/23 08:12 AB (Rec: 05/31/23 11:38 AB [id number]) Therapeutic Exercises Supine Exercises alternating UE flexion Supine Exercise Name UE flexion lying on foam roller Side bilateral Reps/Minutes 10 Comments verbal cues mini band Supine Exercise Name mini band on foam roller ER with flexion Side bilateral Resistance level one light blue band Reps/Minutes 5X Comments Monitored for pain serratus punch Supine Exercise Name on foam roller Resistance 3# weight Reps/Minutes 10x2 chest elevated motorman on foam roller Side bilateral Reps/Minutes 1.5 min X 2 Comments Verbal cues for UE positioning and for breathing from diaphragm Prone Exercises prone T over ball Side bilateral Resistance 0 lb each UE then 2lb X10 Reps/Minutes 10x2 Comments Verbal and visual cues prone Y over ball Side bilateral Resistance 4 lb ea Reps/Minutes 10x2 Comments verbal cues repeated Sidelying Exercises open book Side bilateral Reps/Minutes X5 Comments Verbal cues for breathing, and TC LE position Standing Exercises wall push up plus Standing Exercise Name Counter push up plus this session Side bilateral Reps/Minutes 10 Comments visual cues Other Exercises statue of liberty Other Exercise Name rhythmic stablization, modified UE to 90 deg abd Side left Resistance yellow therabar Reps/Minutes 30 sec Comments visual cues monitored for pain Manual Therapy Treatment Soft Tissue Mobilization Cervical spine Body Location left UT, levator scap, scalene laterally at clavicle Mobilization Type Sustained Pressure Intensity/Depth Deep Body Position Sitting periscap Body Location posterior cuff, terres major/ minor, Mobilization Type Rolling,Sustained Pressure Intensity/Depth Moderate Body Position Sidelying Comments Monitored for pain Joint Mobilizations scapular mobilization Joint left scapula Grade III Body Position Sidelying Comments into depression and adduction monitored for pain PT-OP-R Modalities Start: 05/10/23 08:25 Freq: Status: Active Protocol: Document 05/15/23 09:45 SAK (Rec: 05/16/23 08:41 SAK [id number]) Hot Pack/Cold Pack Treatment Hot Pack Location left should, scap (small), left lat thorax (large Patient Position Sitting PT-OP-T Assessment and Plan Start: 05/10/23 08:25 Freq: Status: Active Protocol: Document 05/31/23 08:12 AB (Rec: 05/31/23 11:38 AB [id number]) Physical Therapy Assessment Goals Four Impairment numbness and tingling into left UE Halfway Goal (LTG) Eliminate neurological symptoms into left UE LTG Duration 07/09/23 Three Impairment scapular weakness Impairment poor stability left scapula Short Term Goal (STG) progressing STG Duration 06/10/23 Halfway Goal (LTG) Patient to be independent and compliant with HEP and demonstrate 5/5 muscle strength all scapular muscles for improved shoulder function LTG Duration 07/09/23 Two Impairment activity tolerance Impairment Quickdash UE disability index score 34% Short Term Goal (STG) Improve Quickdash score to no greater than 24% as measure of improved activity tolerance and shoulder function STG Duration 06/10/23 LTG Duration 07/09/23 One Impairment pain left shoulder as high as 7/10, interferes with sleep Short Term Goal (STG) Decrease pain by at least 50% with all usual activities including sleep STG Duration 06/10/23 Halfway Goal (LTG) Decrease pain by at least 75% with all usual activities and patient will be able to sleep through the night without waking due to shoulder pain LTG Duration 07/09/23 Assessment Summary Assessment Start of session AROM left shoulder flexion to 161 deg with reports of increased finger numbness and tingling with this movement, also sits with shoulders excessively protracted. End of session Arvind stands in improved posture, decreased shoulder protraction and reports that his self task for finger tingling ( flexing trunk fwd and protracting shoulder ) causes less tingling than it did prior to this session. Physical Therapy Plan Frequency and Duration Frequency of Treatment 2x/Week Duration of treatment (weeks) 8 Plan of Care Start Date 05/10/23 Plan of Care End Date 07/09/23 Next Visit Focus/Plan Next Note Type Treatment Note Next Visit Plan Tape prior to exercise, mini band single thickness hooklying vs ER with band
--- NOTE | 2023-06-04 11:07 | PT.OTN ---
Current Diagnoses Unspecified injury of left shoulder and upper arm, initial encounter (06/04/23) Physical Therapy Treatment Note PT-OP-A Visit Information Start: 05/10/23 08:25 Freq: Status: Active Protocol: Document 05/31/23 08:12 AB (Rec: 05/31/23 11:38 AB [id number]) Out-Patient Physical Therapy Visit Information Visit Information Visit Type Treatment Note Visit Note Access code HEP [email or web address] Visit Start Time 10:28 Visit Stop Time 11:18 Visit Number 6 Number of STEAM HEATING INSTALLER Visits 1 PT-OP-B Current Condition Start: 05/10/23 08:25 Freq: Status: Active Protocol: Document 05/29/23 08:07 SAK (Rec: 05/29/23 09:00 SAK [id number]) Current Condition History of Current Condition Onset Date 1 month Current Complaints left shoulder pain History of Current Condition Thinks injured his shoulder while wrestling with his son; arm pulled back behind head with elbow bent, shoulder toward ear. Woke up next day feeling sore, has progressively gotten worse. Now having nerve pain forearm and having numbness left UE. Has rub knots in his shoulder. Worst pain is when lays down at night. Painful reaching overhead and out to side. Turning head to right dec pain and numbness, turning head to left inc pain and numbness Prior Treatments and Tests MRI left shoulder: supraspinatus tear PT-OP-C Subjective Start: 05/10/23 08:25 Freq: Status: Active Protocol: Document 05/31/23 08:12 AB (Rec: 05/31/23 11:38 AB [id number]) OP-PT Subjective Patient Comments Patient Comments Patient reports he is still having soreness from his previous session, comments it is the good, muscle sore. Patient reports the numbness is the same. PT-OP-K Range of Motion Start: 05/10/23 08:25 Freq: Status: Active Protocol: Document 05/10/23 09:46 SAK (Rec: 05/10/23 10:36 SAK [id number]) Cervical Spine Range of Motion Cervical Spine Active Testing Position Sitting Flexion 45 Extension 15 Rotation Left 50 Rotation Right 65 Lateral Flexion Left 30 Lateral Flexion Right 30 ROM Limitations Pain Comments rotation left inc pain, rotation right dec pain Shoulder Goniometric Range of Motion Shoulder Left Active Shoulder ROM WFL No Flexion 165 Extension 25 Abduction 160 Horizontal Abduction 90 Horizontal Adduction 20 External Rotation at 45 degrees 65 Abduction Internal Rotation Behind Back (text) T12 right Shoulder ROM WFL Yes Elbow/Forearm Range of Motion Elbow/Forearm marie Elbow/Forearm ROM WFL Yes PT-OP-L Special Tests Start: 05/10/23 08:25 Freq: Status: Active Protocol: Document 05/10/23 09:46 [facility] (Rec: 05/10/23 10:36 [facility] [id number]) Special Tests Cervical Spine Special Tests compression Test Results sl dec pain Traction Test Results inc pain Shoulder Special Tests Empty Can Test Results neg Belly Press Test Results neg Drop Arm Rotator Cuff Test Results neg PT-OP-M Strength Start: 05/10/23 08:25 Freq: Status: Active Protocol: Document 05/10/23 09:46 [facility] (Rec: 05/10/23 10:36 [facility] [id number]) Cervical Spine Strength Cervical Spine Manual Muscle Testing Testing Position Sitting Flexion (C1-2) 4 Good Extension 4 Good Rotation Left 4- Good- Rotation Right 4- Good- Lateral Flexion Left (C3) 4- Good- Lateral Flexion Right (C3) 4 Good Scapula Strength Scapula Manual Muscle Testing Left Elevation (C4) 4- Good- Adduction 4- Good- Abduction 4- Good- Depression 4- Good- Right Elevation (C4) 5 Normal Adduction 5 Normal Abduction 5 Normal Depression 5 Normal Shoulder Strength Shoulder Manual Muscle Testing Left Flexion 4- Good- Extension 4- Good- Abduction (C5) 4- Good- Adduction 4 Good External Rotation 4- Good- Internal Rotation 4 Good Horizontal Abduction 4- Good- Horizontal Adduction 4- Good- Right Flexion 5 Normal Extension 5 Normal Abduction (C5) 5 Normal Adduction 5 Normal External Rotation 5 Normal Internal Rotation 5 Normal Horizontal Abduction 5 Normal Horizontal Adduction 5 Normal PT-OP-Q Treatments Start: 05/10/23 08:25 Freq: Status: Active Protocol: Document 05/31/23 08:12 AB (Rec: 05/31/23 11:38 AB [id number]) Therapeutic Exercises Supine Exercises alternating UE flexion Supine Exercise Name UE flexion lying on foam roller Side bilateral Reps/Minutes 10 Comments verbal cues mini band Supine Exercise Name mini band on foam roller ER with flexion Side bilateral Resistance level one light blue band Reps/Minutes 5X Comments Monitored for pain serratus punch Supine Exercise Name on foam roller Resistance 3# weight Reps/Minutes 10x2 chest tooling engineer on foam roller Side bilateral Reps/Minutes 1.5 min X 2 Comments Verbal cues for UE positioning and for breathing from diaphragm Prone Exercises prone T over ball Side bilateral Resistance 0 lb each UE then 2lb X10 Reps/Minutes 10x2 Comments Verbal and visual cues prone Y over ball Side bilateral Resistance 4 lb ea Reps/Minutes 10x2 Comments verbal cues repeated Sidelying Exercises open book Side bilateral Reps/Minutes X5 Comments Verbal cues for breathing, and TC LE position Standing Exercises wall push up plus Standing Exercise Name Counter push up plus this session Side bilateral Reps/Minutes 10 Comments visual cues Other Exercises statue of liberty Other Exercise Name rhythmic stablization, modified UE to 90 deg abd Side left Resistance yellow therabar Reps/Minutes 30 sec Comments visual cues monitored for pain Manual Therapy Treatment Soft Tissue Mobilization Cervical spine Body Location left UT, levator scap, scalene laterally at clavicle Mobilization Type Sustained Pressure Intensity/Depth Deep Body Position Sitting periscap Body Location posterior cuff, terres major/ minor, Mobilization Type Rolling,Sustained Pressure Intensity/Depth Moderate Body Position Sidelying Comments Monitored for pain Joint Mobilizations scapular mobilization Joint left scapula Grade III Body Position Sidelying Comments into depression and adduction monitored for pain PT-OP-R Modalities Start: 05/10/23 08:25 Freq: Status: Active Protocol: Document 05/15/23 09:45 SAK (Rec: 05/16/23 08:41 SAK [id number]) Hot Pack/Cold Pack Treatment Hot Pack Location left should, scap (small), left lat thorax (large Patient Position Sitting PT-OP-T Assessment and Plan Start: 05/10/23 08:25 Freq: Status: Active Protocol: Document 05/31/23 08:12 AB (Rec: 05/31/23 11:38 AB [id number]) Physical Therapy Assessment Goals Four Impairment numbness and tingling into left UE Custodial Goal (LTG) Eliminate neurological symptoms into left UE LTG Duration 07/09/23 Three Impairment scapular weakness Impairment poor stability left scapula Short Term Goal (STG) progressing STG Duration 06/10/23 Custodial Goal (LTG) Patient to be independent and compliant with HEP and demonstrate 5/5 muscle strength all scapular muscles for improved shoulder function LTG Duration 07/09/23 Two Impairment activity tolerance Impairment Quickdash UE disability index score 34% Short Term Goal (STG) Improve Quickdash score to no greater than 24% as measure of improved activity tolerance and shoulder function STG Duration 06/10/23 LTG Duration 07/09/23 One Impairment pain left shoulder as high as 7/10, interferes with sleep Short Term Goal (STG) Decrease pain by at least 50% with all usual activities including sleep STG Duration 06/10/23 Custodial Goal (LTG) Decrease pain by at least 75% with all usual activities and patient will be able to sleep through the night without waking due to shoulder pain LTG Duration 07/09/23 Assessment Summary Assessment Start of session AROM left shoulder flexion to 161 deg with reports of increased finger numbness and tingling with this movement, also sits with shoulders excessively protracted. End of session Arvind stands in improved posture, decreased shoulder protraction and reports that his self task for finger tingling ( flexing trunk fwd and protracting shoulder ) causes less tingling than it did prior to this session. Physical Therapy Plan Frequency and Duration Frequency of Treatment 2x/Week Duration of treatment (weeks) 8 Plan of Care Start Date 05/10/23 Plan of Care End Date 07/09/23 Next Visit Focus/Plan Next Note Type Treatment Note Next Visit Plan Tape prior to exercise, mini band single thickness hooklying vs ER with band
--- NOTE | 2023-06-11 10:03 | PT.OTN ---
Current Diagnoses Unspecified injury of left shoulder and upper arm, initial encounter (06/11/23) Physical Therapy Treatment Note PT-OP-A Visit Information Start: 05/10/23 08:25 Freq: Status: Active Protocol: Document 06/11/23 08:14 AB (Rec: 06/11/23 10:03 AB [id number]) Out-Patient Physical Therapy Visit Information Visit Information Visit Type Treatment Note Visit Note Access code HEP [id number] Visit Start Time 09:00 Visit Stop Time 09:44 Visit Number 7 Number of WORKFORCE SPECIALIST Visits 2 Evaluation Information Evaluation Date 05/10/23 PT-OP-B Current Condition Start: 05/10/23 08:25 Freq: Status: Active Protocol: Document 05/29/23 08:07 SAK (Rec: 05/29/23 09:00 SAK [id number]) Current Condition History of Current Condition Onset Date 1 month Current Complaints left shoulder pain History of Current Condition Thinks injured his shoulder while wrestling with his son; arm pulled back behind head with elbow bent, shoulder toward ear. Woke up next day feeling sore, has progressively gotten worse. Now having nerve pain forearm and having numbness left UE. Has rub knots in his shoulder. Worst pain is when lays down at night. Painful reaching overhead and out to side. Turning head to right dec pain and numbness, turning head to left inc pain and numbness Prior Treatments and Tests MRI left shoulder: supraspinatus tear PT-OP-C Subjective Start: 05/10/23 08:25 Freq: Status: Active Protocol: Document 06/11/23 08:14 AB (Rec: 06/11/23 10:03 AB [id number]) OP-PT Subjective Patient Comments Patient Comments Patient reports he did firewood this weekend, was a super sore afterward, took one day to recover. Patient reports results of EMG shows the neck is fine, was advised carpal tunnel coming from wrist is causing the tingling. PT-OP-K Range of Motion Start: 05/10/23 08:25 Freq: Status: Active Protocol: Document 05/10/23 09:46 SAK (Rec: 05/10/23 10:36 SAK [id number]) Cervical Spine Range of Motion Cervical Spine Active Testing Position Sitting Flexion 45 Extension 15 Rotation Left 50 Rotation Right 65 Lateral Flexion Left 30 Lateral Flexion Right 30 ROM Limitations Pain Comments rotation left inc pain, rotation right dec pain Shoulder Goniometric Range of Motion Shoulder Left Active Shoulder ROM WFL No Flexion 165 Extension 25 Abduction 160 Horizontal Abduction 90 Horizontal Adduction 20 External Rotation at 45 degrees 65 Abduction Internal Rotation Behind Back (text) T12 right Shoulder ROM WFL Yes Elbow/Forearm Range of Motion Elbow/Forearm marie Elbow/Forearm ROM WFL Yes PT-OP-L Special Tests Start: 05/10/23 08:25 Freq: Status: Active Protocol: Document 05/10/23 09:46 SAK (Rec: 05/10/23 10:36 [facility] [id number]) Special Tests Cervical Spine Special Tests compression Test Results sl dec pain Traction Test Results inc pain Shoulder Special Tests Empty Can Test Results neg Belly Press Test Results neg Drop Arm Rotator Cuff Test Results neg PT-OP-M Strength Start: 05/10/23 08:25 Freq: Status: Active Protocol: Document 05/10/23 09:46 [facility] (Rec: 05/10/23 10:36 [facility] [id number]) Cervical Spine Strength Cervical Spine Manual Muscle Testing Testing Position Sitting Flexion (C1-2) 4 Good Extension 4 Good Rotation Left 4- Good- Rotation Right 4- Good- Lateral Flexion Left (C3) 4- Good- Lateral Flexion Right (C3) 4 Good Scapula Strength Scapula Manual Muscle Testing Left Elevation (C4) 4- Good- Adduction 4- Good- Abduction 4- Good- Depression 4- Good- Right Elevation (C4) 5 Normal Adduction 5 Normal Abduction 5 Normal Depression 5 Normal Shoulder Strength Shoulder Manual Muscle Testing Left Flexion 4- Good- Extension 4- Good- Abduction (C5) 4- Good- Adduction 4 Good External Rotation 4- Good- Internal Rotation 4 Good Horizontal Abduction 4- Good- Horizontal Adduction 4- Good- Right Flexion 5 Normal Extension 5 Normal Abduction (C5) 5 Normal Adduction 5 Normal External Rotation 5 Normal Internal Rotation 5 Normal Horizontal Abduction 5 Normal Horizontal Adduction 5 Normal PT-OP-Q Treatments Start: 05/10/23 08:25 Freq: Status: Active Protocol: Document 06/11/23 08:14 AB (Rec: 06/11/23 10:03 AB [id number]) Therapeutic Exercises Supine Exercises shoulder IR AROM Supine Exercise Name IR AROM in hooklying Side bilateral Reps/Minutes X10 Comments use of self tactile cues to avoid anterior translation of humerus alternating UE flexion Supine Exercise Name UE flexion lying on foam roller Side bilateral Reps/Minutes 10 Comments verbal cues mini band Supine Exercise Name mini band on foam roller ER with flexion Side bilateral Resistance level one light blue band Reps/Minutes 10X Comments Monitored for pain chest handle bar assembler on foam roller Side bilateral Reps/Minutes 3 min Prone Exercises prone T over ball Side bilateral Resistance 5lb Reps/Minutes 10x5 prone Y over ball Side bilateral Resistance 3 lb ea Reps/Minutes 10x Sidelying Exercises open book Side bilateral Reps/Minutes X5 Comments Verbal cues for breathing, and TC LE position Other Exercises statue of liberty Other Exercise Name rhythmic stablization, modified UE to 90 deg abd Side left Resistance yellow therabar Reps/Minutes 30 sec Comments visual cues monitored for pain Manual Therapy Treatment Soft Tissue Mobilization Cervical spine Body Location left UT, levator scap, scalene laterally at clavicle Mobilization Type Sustained Pressure Intensity/Depth Deep Body Position Sitting pec Body Location left pec Mobilization Type Rolling,Other Intensity/Depth Deep Body Position Hooklying periscap Body Location posterior cuff, terres major/ minor, Mobilization Type Rolling,Sustained Pressure Intensity/Depth Moderate Body Position Sidelying Comments Monitored for pain Joint Mobilizations scapular mobilization Joint left scapula Grade III Body Position Sidelying Comments into depression and adduction monitored for pain Taping left shoulder, UT Treatment Focus to inhibit UT and facilitate posture/shoulder alignment bilaterally Type of Tape Kinesiotape Self-Care/Home Management Treatment Activities Self-Care/Home Management Activities HEP updated, pec stretch on foam roller added, lower trap at 3 # and 3X 10, advised to discontinue shoulder IR when able to touch floor with hand and avoid anterior translation of humerus, when positioned in hooklying. PT-OP-R Modalities Start: 05/10/23 08:25 Freq: Status: Active Protocol: Document 05/15/23 09:45 SAK (Rec: 05/16/23 08:41 SAK [id number]) Hot Pack/Cold Pack Treatment Hot Pack Location left should, scap (small), left lat thorax (large Patient Position Sitting PT-OP-T Assessment and Plan Start: 05/10/23 08:25 Freq: Status: Active Protocol: Document 06/11/23 08:14 AB (Rec: 06/11/23 10:03 AB [id number]) Physical Therapy Assessment Goals Four Impairment numbness and tingling into left UE Long-Term Goal (LTG) Eliminate neurological symptoms into left UE LTG Duration 07/09/23 Three Impairment scapular weakness Impairment poor stability left scapula Short Term Goal (STG) progressing STG Duration 06/10/23 Long-Term Goal (LTG) Patient to be independent and compliant with HEP and demonstrate 5/5 muscle strength all scapular muscles for improved shoulder function LTG Duration 07/09/23 Two Impairment activity tolerance Impairment Quickdash UE disability index score 34% Short Term Goal (STG) Improve Quickdash score to no greater than 24% as measure of improved activity tolerance and shoulder function STG Duration 06/10/23 LTG Duration 07/09/23 One Impairment pain left shoulder as high as 7/10, interferes with sleep Short Term Goal (STG) Decrease pain by at least 50% with all usual activities including sleep STG Duration 06/10/23 University Relations Vice President Goal (LTG) Decrease pain by at least 75% with all usual activities and patient will be able to sleep through the night without waking due to shoulder pain LTG Duration 07/09/23 Assessment Summary Assessment Patient reports feelng good end of session. Patient into session with improved posture compared to previous session. Ant translation of humeral head with AROM IR persists left UE. Physical Therapy Plan Frequency and Duration Frequency of Treatment 2x/Week Duration of treatment (weeks) 8 Plan of Care Start Date 05/10/23 Plan of Care End Date 07/09/23 Next Visit Focus/Plan Next Note Type Treatment Note Next Visit Plan Revist HEP for condensing/ advancing strengthening exercises as able. Note posture.
--- NOTE | 2023-08-01 16:07 | PT.OPDS ---
Current Diagnoses Unspecified injury of left shoulder and upper arm, initial encounter (06/11/23) Visit Care Team Role Provider Type Gerald Hahn DO Family Provider Physician Primary Care Provider Specialty: Family Practice Address: [address] [place] [address], [address], [address] Email: [email or web address] Attending Provider [employer] Supervisor Referring Provider Specialty: Medical Wound Care Address: [address] [place] [address], [id number] Email: [email or web address] Visit Number Visit Number 7 Discharge Summary PT-OP-B Current Condition Start: 05/10/23 08:25 Freq: Status: Active Protocol: Document 05/29/23 08:07 SAK (Rec: 05/29/23 09:00 SAK [id number]) Current Condition History of Current Condition Onset Date 1 month Current Complaints left shoulder pain History of Current Condition Thinks injured his shoulder while wrestling with his son; arm pulled back behind head with elbow bent, shoulder toward ear. Woke up next day feeling sore, has progressively gotten worse. Now having nerve pain forearm and having numbness left UE. Has rub knots in his shoulder. Worst pain is when lays down at night. Painful reaching overhead and out to side. Turning head to right dec pain and numbness, turning head to left inc pain and numbness Prior Treatments and Tests MRI left shoulder: supraspinatus tear PT-OP-C Subjective Start: 05/10/23 08:25 Freq: Status: Active Protocol: Document 06/11/23 08:14 AB (Rec: 06/11/23 10:03 AB [id number]) OP-PT Subjective Patient Comments Patient Comments Patient reports he did firewood this weekend, was a super sore afterward, took one day to recover. Patient reports results of EMG shows the neck is fine, was advised carpal tunnel coming from wrist is causing the tingling. PT-OP-K Range of Motion Start: 05/10/23 08:25 Freq: Status: Active Protocol: Document 05/10/23 09:46 SAK (Rec: 05/10/23 10:36 [facility] [id number]) Cervical Spine Range of Motion Cervical Spine Active Testing Position Sitting Flexion 45 Extension 15 Rotation Left 50 Rotation Right 65 Lateral Flexion Left 30 Lateral Flexion Right 30 ROM Limitations Pain Comments rotation left inc pain, rotation right dec pain Shoulder Goniometric Range of Motion Shoulder Left Active Shoulder ROM WFL No Flexion 165 Extension 25 Abduction 160 Horizontal Abduction 90 Horizontal Adduction 20 External Rotation at 45 degrees 65 Abduction Internal Rotation Behind Back (text) T12 right Shoulder ROM WFL Yes Elbow/Forearm Range of Motion Elbow/Forearm marie Elbow/Forearm ROM WFL Yes PT-OP-L Special Tests Start: 05/10/23 08:25 Freq: Status: Active Protocol: Document 05/10/23 09:46 [facility] (Rec: 05/10/23 10:36 [facility] [id number]) Special Tests Cervical Spine Special Tests compression Test Results sl dec pain Traction Test Results inc pain Shoulder Special Tests Empty Can Test Results neg Belly Press Test Results neg Drop Arm Rotator Cuff Test Results neg PT-OP-M Strength Start: 05/10/23 08:25 Freq: Status: Active Protocol: Document 05/10/23 09:46 [facility] (Rec: 05/10/23 10:36 [facility] [id number]) Cervical Spine Strength Cervical Spine Manual Muscle Testing Testing Position Sitting Flexion (C1-2) 4 Good Extension 4 Good Rotation Left 4- Good- Rotation Right 4- Good- Lateral Flexion Left (C3) 4- Good- Lateral Flexion Right (C3) 4 Good Scapula Strength Scapula Manual Muscle Testing Left Elevation (C4) 4- Good- Adduction 4- Good- Abduction 4- Good- Depression 4- Good- Right Elevation (C4) 5 Normal Adduction 5 Normal Abduction 5 Normal Depression 5 Normal Shoulder Strength Shoulder Manual Muscle Testing Left Flexion 4- Good- Extension 4- Good- Abduction (C5) 4- Good- Adduction 4 Good External Rotation 4- Good- Internal Rotation 4 Good Horizontal Abduction 4- Good- Horizontal Adduction 4- Good- Right Flexion 5 Normal Extension 5 Normal Abduction (C5) 5 Normal Adduction 5 Normal External Rotation 5 Normal Internal Rotation 5 Normal Horizontal Abduction 5 Normal Horizontal Adduction 5 Normal PT-OP-T Assessment and Plan Start: 05/10/23 08:25 Freq: Status: Active Protocol: Document 08/01/23 16:07 [facility] (Rec: 08/01/23 16:07 [facility] [id number]) Physical Therapy Plan Discharge Physical Therapy Discharge Reasons No Longer Attending PT
== END 2023-08-17 13:19 ==
LOC: PHYS 09:00
PROVIDERS: Family Provider Family Medicine; PCP Family Medicine; Referring Provider Physician Assistant; Visit Provider Physician Assistant
DX: S49.92XA Unspecified injury of left shoulder and upper arm, initial encounter (principal)
CPT/HCPCS: 97110; 97140; 97161; 97535

== ENCOUNTER → 2024-02-15 08:26 | Outpatient (CLI) | payer OTHER, MEDICAID, SELFPAY ==
--- NOTE | 2024-02-15 08:27 | DI.US.S_ITS ---
PROCEDURE: US SCROTUM INDICATIONS: LEFT SCROTAL LUMP TECHNIQUE: Real-time scanning was performed of the scrotum and testicles, with image documentation. Color and pulse Doppler interrogation was performed of both testicles. COMPARISON: [facility], , US SCROTUM, 04/05/2023, 17:04. FINDINGS: Right: Testicle is normal in size at 5.3 x 2.4 x 3.7 cm, and homogenous in echotexture. Epididymis is normal in overall size and morphology. Small hydrocele. No varicoceles. Overlying scrotal skin is normal in thickness. Left: Testicle is normal in size at 5.1 x 2.3 x 3.2 cm, and homogeneous in echotexture. Epididymis is normal in overall size and morphology. There is a minimally complex cyst in the left epididymis measuring 2.7 x 1.3 x 2.4 cm, previously 2.3 x 1.5 x 2.3 cm. This cyst contains low level internal echoes. Small hydrocele. No varicoceles. Overlying scrotal skin is normal in thickness. Doppler: Color and pulse Doppler demonstrate normal and symmetric arterial flow in both testicles. IMPRESSION: Mildly increased size of left epididymal head cyst with minimal complexity and low-level internal echoes, measuring up to 2.7 cm, previously 2.3 cm. Recommend 1 year follow-up ultrasound to assess for stability. Dictated by: Teo Osorio M.D. on 02/15/2024 at 17:15 Approved by: Teo Osorio M.D. on 02/15/2024 at 17:17
== END ==
LOC: US 08:26
PROVIDERS: Family Provider Family Medicine; PCP Family Medicine; Referring Provider Family Medicine; Visit Provider Family Medicine
DX: N50.89 Other specified disorders of the male genital organs (principal); N50.3 Cyst of epididymis; N43.3 Hydrocele, unspecified
CPT/HCPCS: 76870